=== PATIENT | female | born 1990 | race Caucasian/White ===

== ENCOUNTER 2025-08-03 21:55 | Emergency (ER) | payer MEDICAID ==
[~2025-08-03] VITALS: Ht 154.9 cm; Wt 67.1 kg
[2025-08-03 23:23] LABS: PLATELET COUNT (AUTO) 350 K/uL (179-408); RED BLOOD CELL COUNT(AUTO) 4.77 MIL/uL (3.63-4.92); RED CELL DISTRIBUTION WIDTH 13.3 % (12.3-17.7); WHITE BLOOD COUNT (AUTO) 14.3 K/uL (3.8-11.8)
[2025-08-03 23:32] LABS: CREATININE 1.1 mg/dL (0.6-1.3); SODIUM SERUM 140 mmol/L (136-145); UREA NITROGEN, BLOOD 15 mg/dL (7-18)
[2025-08-03 23:38] LABS: ASPARTATE AMINOTRANSFERASE 10 U/L (15-37); TOTAL PROTEIN, SERUM 7.7 g/dL (6.4-8.2)
[2025-08-04 00:13] VITALS: BP 103/71
[2025-08-04 00:18] VITALS: BP 103/71; O2SAT 98
== END 2025-08-04 00:18 | disposition home or self-care (01) ==
LOC: ER 21:58
DX: R06.02 Shortness of breath (principal); E03.9 Hypothyroidism, unspecified
CPT/HCPCS: 36415; 71045; 84443; 84484; 85025; 86140; A4606; A4663